=== PATIENT | male | born 2005 | race Caucasian/White ===

== ENCOUNTER 2024-09-05 12:34 | Emergency (ER) | payer SELFPAY ==
[~2024-09-05] VITALS: Ht 175.3 cm; Wt 95.2 kg
[2024-09-05 12:37] VITALS: BP 130/77; TEMP 97.1; O2SAT 98
== END 2024-09-05 13:36 | disposition left against medical advice (07) ==
LOC: M ED 12:34
DX: Z53.21 Procedure and treatment not carried out due to patient leaving prior to being seen by health care provider (principal)